=== PATIENT | female | born 1995 | race Caucasian/White ===

== ENCOUNTER 2021-12-04 21:55 | Emergency (ER) | payer BC ==
[2021-12-04 23:02] LABS: ESTIMATED GFR > 60 mL/min (>60)
== END 2021-12-05 01:20 | disposition home or self-care (01) ==
LOC: JD.ED 21:55
DX: R07.81 Pleurodynia (principal); Z20.822 Contact with and (suspected) exposure to COVID-19
CPT/HCPCS: 36415; 71046; 71046-26; 80053; 85025; 85379; 85610; 85730; 93005; 93010; 99283; 99284-25; U0002